=== PATIENT | male | born 1930 | race African-American/Black ===

== ENCOUNTER 2020-10-25 04:19 | Day surgery (SDC) | payer OTHER, BC ==
[2020-10-22 12:05] VITALS: BMI 24.3
[2020-10-25 07:56] LABS: INR 0.99 (0.83-1.09)
[2020-10-25 07:58] LABS: EOS % 4.2 % (0-4.5); HEMATOCRIT 39.3 % (35.4-49); HEMOGLOBIN 13.2 GM/dL (11.7-16.9); LYMPH % 30.8 % (8-40); MCH 28.9 pg (25.7-33.7); MCHC 33.5 g/dl (32.0-35.9); MEAN PLT VOLUME 7.4 fl (7.5-11.1); MONO % 6.9 % (3.8-10.2); NEUT % 57.1 % (42.8-82.8); PLATELET COUNT 319 K/MM3 (134-434); RBC 4.57 M/mm3 (4.00-5.60); RDW 16.4 % (11.9-15.9); WHITE BLOOD COUNT 6.8 K/mm3 (4.0-10.0)
[2020-10-25 07:59] LABS: ACTIVATED PTT 27.8 SECONDS (25.2-36.5)
[2020-10-25 08:09] LABS: CALCIUM 9.1 mg/dL (8.5-10.1)
[2020-10-25 08:10] LABS: EPI CELLS 4 /uL (0-25.1); HYALINE CASTS 2 /uL (0-3.1); PH,URINE 5.5 (5.0-8.0); URINE APPEARANCE CLEAR; URINE BACTERIA 7 /uL (0-1359); URINE BILIRUBIN NEGATIVE (NEGATIVE); URINE COLOR YELLOW; URINE GLUCOSE (UA) NEGATIVE (NEGATIVE); URINE KETONE TRACE (NEGATIVE); URINE LEUK ESTERASE NEGATIVE (NEGATIVE); URINE NITRITE NEGATIVE (NEGATIVE); URINE PROTEIN 2+ (NEGATIVE); URINE RBC 7 /uL (0-23.9); URINE UROBILINOGEN 0.2 mg/dL (0.2-1.0); URINE WBC 5 /uL (0-25.8)
[2020-10-25 08:11] LABS: ALBUMIN 3.4 g/dl (3.4-5.0); BLOOD UREA NITROGEN 28.2 mg/dL (7-18)
[2020-10-25 08:14] LABS: BILIRUBIN,TOTAL 0.7 mg/dL (0.2-1); CREATININE 2.4 mg/dL (0.55-1.3)
[2020-10-25] MEDS ORDERED: PROPOFOL 20 ML ONE (08:36)
[2020-10-25] MEDS ORDERED: MIDAZOLAM HCL 2 MG/2 ML SINGLE DOSE VIAL ONE (08:36)
[2020-10-25] MEDS ORDERED: DESFLURANE GAS 240 ML BOTTLE IH ONE (08:39)
[2020-10-25] MEDS ORDERED: KETOROLAC TROMETHAMINE 30 MG/1 ML VIAL ONE (08:46)
[2020-10-25] MEDS ORDERED: LIDOCAINE HCL 1%, 10 MG/ML (20ML VIAL) ONE (09:03)
[2020-10-25] MEDS ORDERED: ceFAZolin SODIUM 1 GM VIAL IVPB ONE (09:15)
[2020-10-25] MEDS ORDERED: LIDOCAINE HCL/PF 2% SDV 5ML VIAL ONE (09:25)
[2020-10-25] MEDS ORDERED: ceFAZolin SODIUM 1 GM VIAL ONE (09:30)
[2020-10-25] MEDS ORDERED: LIDOCAINE HCL 1%, 10 MG/ML (20ML VIAL) INF ONE (09:41)
[2020-10-25] MEDS ORDERED: BUPIVACAINE HCL/PF 0.5% (5MG/ML) 10 ML VIAL IJ ONE (09:41)
[2020-10-25] MEDS ORDERED: ONDANSETRON 4 MG/2 ML VIAL IVPUSH PRN (09:52)
[2020-10-25] MEDS ORDERED: oxyCODONE HCL 5 MG TABLET PO PRN (09:52)
[2020-10-25] MEDS ORDERED: LACTATED RINGERS SOLUTION 1,000 ML IV SCH (10:00)
[2020-10-25 12:48] VITALS: BP 168/66; PULSE 58; TEMP 97.7
== END 2020-10-25 12:15 | disposition home or self-care (01) ==
LOC: JASU-SURG 04:19
PROVIDERS: ATTEND Orthopaedic Surgery
PROC: 01N50ZZ Release Median Nerve, Open Approach (ICD-10-PCS; principal; 2020-10-25 09:00)
DX: G56.01 Carpal tunnel syndrome, right upper limb (principal); M65.9 Synovitis and tenosynovitis, unspecified
CPT/HCPCS: 36415; 80053; 81003; 85025; 85610; 85730; 88304-TC; 93005; 93010